=== PATIENT | male | born 1995 | race American Indian/Alaskan Native ===

== ENCOUNTER 2018-04-07 17:41 | Emergency (ER) | payer SELFPAY ==
[2018-04-07 18:25] VITALS: BP 147/81
[2018-04-07] MEDS ORDERED: TORADOL IM ONE (19:54)
[2018-04-07] MEDS ORDERED: ZOFRAN ODT PO ONE (19:54)
[2018-04-07] MEDS ORDERED: NORCO 10/325 PO ONE (19:55)
[2018-04-07] MEDS ORDERED: PHENERGAN PO ONE (19:55)
--- NOTE | 2018-04-07 19:57 | Emergency Department Report ---
ED General Adult HPI - General Chief complaint: Back Pain/Injury Stated complaint: BACK SPASM Time Seen by Provider: 04/07/18 19:53 Source: patient Mode of arrival: Ambulatory Limitations: No Limitations - History of Present Illness Initial comments: Patient complains of back pain that started after lifting something at his job. Patient states he heard a pop and felt tingling in his lower back. He denies any numbness or tingling of his legs and he also denies any issues with this stool or bladder. Patient has no other complaints -: Sudden Location: back Radiation: non-radiation Severity scale (0 -10): 7 Quality: sharp Consistency: constant Improves with: rest Worsens with: movement Associated Symptoms: denies other symptoms Treatments Prior to Arrival: none - Related Data Previous Rx's Medication Instructions Recorded Last Taken Type Cyclobenzaprine HCl [Flexeril 5 MG 5 mg PO BID PRN #10 tab 04/07/18 Unknown Rx TAB] HYDROcodone/APAP 5-325 [[place] 1 each PO Q6HR PRN #18 tablet 04/07/18 Unknown Rx 5/325] Ibuprofen [Motrin] 800 mg PO Q8HR PRN #30 tablet 04/07/18 Unknown Rx Prednisone 50 mg PO QDAY #5 tablet 04/07/18 Unknown Rx Allergies Allergy/AdvReac Type Severity Reaction Status Date / Time oxycodone [From Percocet] Allergy Unknown Verified 04/07/18 18:25 ED Review of Systems ROS: Stated complaint: BACK SPASM Other details as noted in HPI Constitutional: denies: chills, fever Eyes: denies: eye pain, eye discharge, vision change ENT: denies: ear pain, throat pain Respiratory: denies: cough, shortness of breath, wheezing Cardiovascular: denies: chest pain, palpitations Endocrine: no symptoms reported Gastrointestinal: denies: abdominal pain, nausea, diarrhea Genitourinary: denies: urgency, dysuria Musculoskeletal: back pain. denies: joint swelling, arthralgia Skin: denies: rash, lesions Neurological: denies: headache, weakness, paresthesias Psychiatric: denies: anxiety, depression Hematological/Lymphatic: denies: easy bleeding, easy bruising ED Past Medical Hx - Past Medical History Previous Medical History?: No - Surgical History Additional Surgical History: right ankle - Social History Smoking Status: Never Smoker Substance Use Type: None - Medications Home Medications: Home Medications Medication Instructions Recorded Confirmed Last Taken Type Cyclobenzaprine HCl [Flexeril 5 MG 5 mg PO BID PRN #10 tab 04/07/18 Unknown Rx TAB] HYDROcodone/APAP 5-325 [[place] 1 each PO Q6HR PRN #18 tablet 04/07/18 Unknown Rx 5/325] Ibuprofen [Motrin] 800 mg PO Q8HR PRN #30 tablet 04/07/18 Unknown Rx Prednisone 50 mg PO QDAY #5 tablet 04/07/18 Unknown Rx ED Physical Exam - General Limitations: No Limitations General appearance: alert, in no apparent distress - Head Head exam: Present: atraumatic, normocephalic - Eye Eye exam: Present: normal appearance - ENT ENT exam: Present: mucous membranes moist - Neck Neck exam: Present: normal inspection - Respiratory Respiratory exam: Present: normal lung sounds bilaterally. Absent: respiratory distress - Cardiovascular Cardiovascular Exam: Present: regular rate, normal rhythm. Absent: systolic murmur, diastolic murmur, rubs, gallop - GI/Abdominal GI/Abdominal exam: Present: soft, normal bowel sounds - Rectal Rectal exam: Present: deferred - Extremities Exam Extremities exam: Present: normal inspection - Back Exam Back exam: Present: other (paralumbar tenderness to palpation) - Neurological Exam Neurological exam: Present: alert, oriented X3, CN II-XII intact, normal gait, reflexes normal. Absent: motor sensory deficit - Psychiatric Psychiatric exam: Present: normal affect, normal mood - Skin Skin exam: Present: warm, dry, intact, normal color. Absent: rash ED Course Vital Signs 04/07/18 04/07/18 04/07/18 18:22 20:14 20:15 Temperature 100.3 F H Pulse Rate 110 H Respiratory 18 18 18 Rate Blood Pressure 147/81 O2 Sat by Pulse 98 Oximetry ED Medical Decision Making - Medical Decision Making Patient offered imaging but he politely declined stating he would just rather be treated for his pain and have imaging done when he returns to [facility] Patient states he's had [place] in the past without any issues Critical care attestation.: If time is entered above; I have spent that time in minutes in the direct care of this critically ill patient, excluding procedure time. ED Disposition Clinical Impression: Back pain Disposition: DC-01 TO HOME OR SELFCARE Is pt being admited?: No Does the pt Need Aspirin: No Condition: Stable Instructions: Low Back Strain (ED) Additional Instructions: return if worse Prescriptions: Cyclobenzaprine HCl [Flexeril 5 MG TAB] 5 mg PO BID PRN #10 tab PRN Reason: Spasms HYDROcodone/APAP 5-325 [[place] 5/325] 1 each PO Q6HR PRN #18 tablet PRN Reason: Pain Ibuprofen [Motrin] 800 mg PO Q8HR PRN #30 tablet PRN Reason: pain Prednisone 50 mg PO QDAY #5 tablet Referrals: PRIMARY CARE,MD [Primary Care Provider] - 3-5 Days Forms: Work/School Release Form(ED), Work/School Excuse Out Patient Time of Disposition: 20:15
== END 2018-04-07 20:24 | disposition home or self-care (01) ==
LOC: ED 17:41
DX: M54.5 Low back pain (principal); Z88.4 Allergy status to anesthetic agent
CPT/HCPCS: 96372; 99282; J1885; J2930; Q0162; Q0169